=== PATIENT | female | born 1960 | race Caucasian/White ===

== ENCOUNTER 2017-08-07 16:14 | Emergency (ER) | payer OTHER ==
--- NOTE | 2017-08-07 16:48 | ED Physician Documentation ---
PD HPI UPPER EXT INJURY - Stated complaint Stated Complaint: LT WRIST PX - Chief complaint Chief Complaint: Ext Problem - History obtained from History obtained from: Patient - History of Present Illness Location: Other (Trip and fall at a local car wash today. She landed on an outstretched left wrist. She is right-handed. She also has a scrape on her face but no loss of consciousness, headache, or nausea.) Review of Systems Constitutional: denies: Fever, Chills Nose: reports: Reviewed and negative Cardiac: reports: Reviewed and negative PD PAST MEDICAL HISTORY - Past Medical History Past Medical History: No GI: C.difficile : Renal insuffiency Psych: Anxiety - Past Surgical History Past Surgical History: No Cardiovascular: Cardiac catheterization - Present Medications Home Medications: Ambulatory Orders Medication Instructions Recorded Confirmed Acetaminophen with Codeine 1 each PO Q4HR PRN #15 tablet 08/07/17 [Acetaminophen-Cod #3 Tablet] - Allergies Allergies/Adverse Reactions: Allergies Allergy/AdvReac Type Severity Reaction Status Date / Time No Known Drug Allergies Allergy Verified 08/07/17 16:24 - Social History Does the pt smoke?: No Smoking Status: Never smoker PD ED PE NORMAL - Vitals Vital signs reviewed: Yes - General General: Alert and oriented X 3, No acute distress - HEENT HEENT: PERRL, EOMI, Other (There is a little abrasion on the right cheek, no facial bony tenderness.) - Neck Neck: Supple, no meningeal sign, No bony TTP - Derm Derm: Normal color, Warm and dry - Extremities Extremities: Other (TTP L wrist, no deformity. NVI in trisha hand) - Neuro Neuro: Alert and oriented X 3 - Psych Psych: Normal mood, Normal affect Results - Vitals Vitals: Vital Signs - 24 hr 08/07/17 08/07/17 16:21 17:29 Temperature 36.7 C Heart Rate 59 L 60 Respiratory 17 15 Rate Blood Pressure 156/94 H 138/72 H O2 Saturation 99 98 Oxygen O2 Source Room air - Rads (name of study) L wrist 4v Radiology: EMP read contemporaneously (Nondisplaced distal radius fracture) Procedures - Splint (location) L wrist Splint applied by: Tech Type of splint: Fiberglass, Short arm, Volar cock up Other: Patient tolerated well, No complications, Neurovascular intact Departure - Departure Disposition: 01 Home, Self Care Clinical Impression: Fracture of left distal radius Qualifiers: Encounter type: initial encounter Fracture type: closed Fracture morphology: other intra-articular Qualified Code(s): S52.572A - Other intraarticular fracture of lower end of left radius, initial encounter for closed fracture Condition: Good Record reviewed to determine appropriate education?: Yes Instructions: ED Fx Forearm Radius Ulna No Redu Requ Follow-Up: [facility] [Provider Group] - Within 1 week Prescriptions: Acetaminophen with Codeine [Acetaminophen-Cod #3 Tablet] 1 each PO Q4HR PRN #15 tablet PRN Reason: Pain Comments: Keep the splint on and dry, elevated. Follow-up with the orthopedics office in 1 week, call tomorrow for an appointment. Your blood pressure was elevated today on check into the emergency department. This does not mean that you have hypertension, it is a common phenomenon to come to the emergency department and have elevated blood pressure. I recommend that you see your primary care physician within the week to have it rechecked when you are feeling better. Do not drink or drive while taking narcotic pain medication. Note that many narcotic pain relievers also contain Tylenol/acetaminophen. Please ensure that your total dose of acetaminophen from all sources does not exceed 3 g (3000 mg) per day. You may get constipated while on this medication. Take a stool softener such as Colace twice a day while you are on it. Also add an ldam-dja-ydcnmbd laxative such as senna or MiraLAX on any day that you do not have a bowel movement. If you received a narcotic pain medication or sedative while in the emergency department, do not drive for the next 24 hours. Forms: Activity restrictions Discharge Date/Time: 08/07/17 17:29
--- NOTE | 2017-08-07 16:52 | XRAY Preliminary Report ---
Exam: XR WRIST 4 VIEW LT IMPRESSION: Nondisplaced distal radius fracture at base of radial styloid. [facility] SITE ID: [id number]
--- NOTE | 2017-08-07 16:54 | XRAY Report ---
EXAM: LEFT WRIST RADIOGRAPHY EXAM DATE: 08/07/2017 04:39 PM. CLINICAL HISTORY: Fall with wrist injury. COMPARISON: None. TECHNIQUE: 4 views. FINDINGS: Bones: There is a lucency across the base of the radial styloid. No ulnar fracture. The carpal bones appear intact without fracture. Proximal metacarpals appear unremarkable. Joints: Normal. No subluxations. Soft Tissues: There is soft tissue swelling at the dorsal wrist. IMPRESSION: Nondisplaced distal radius fracture at base of radial styloid. [facility] Referring Provider Line: [phone] SITE ID: [id number]
[2017-08-07] MEDS ORDERED: BUFFERED LIDOCAINE 10 ML SYRINGE ONE (17:04)
[2017-08-07 17:29] VITALS: BP 138/72
== END 2017-08-07 17:29 | disposition home or self-care (01) ==
LOC: ED 16:14
DX: S52.572A Other intraarticular fracture of lower end of left radius, initial encounter for closed fracture (principal); W01.0XXA Fall on same level from slipping, tripping and stumbling without subsequent striking against object, initial encounter; Y92.89 Other specified places as the place of occurrence of the external cause; R03.0 Elevated blood-pressure reading, without diagnosis of hypertension; N28.9 Disorder of kidney and ureter, unspecified
CPT/HCPCS: 29125; 99283

== ENCOUNTER 2017-08-16 14:19 | Outpatient (CLI) | payer OTHER ==
--- NOTE | 2017-08-17 14:04 | XRAY Report ---
EXAM: RIGHT RIB RADIOGRAPHY EXAM DATE: 08/16/2017 02:36 PM. CLINICAL HISTORY: CHEST PAIN, ACUTE. COMPARISON: None. TECHNIQUE: 1 view of the chest and 2 views of the ribs. FINDINGS: Bones: No markers were placed at the site of the patient's pain in the lower right chest. No underlyi ng acute rib fracture or other bone lesion is seen in this area. Remainder of the bony structures are unremarkable. Lungs: No focal opacities. No pneumothorax. No pleural effusions. Mediastinum: Heart and mediastinal contours are unremarkable. Other: Suspect the patient has bilateral breast implants. IMPRESSION: No acute process identified in the chest. No evidence of right rib fracture or other acut e bony abnormality. [facility] Referring Provider Line: [phone] SITE ID: [id number]
== END 2017-08-16 14:20 | disposition home or self-care (01) ==
LOC: DI.S 14:19
PROVIDERS: ATTEND Nurse Practitioner Family
DX: R07.89 Other chest pain (principal)

== ENCOUNTER 2017-09-20 12:50 | Outpatient (CLI) | payer OTHER ==
--- NOTE | 2017-09-24 10:44 | DEXA Report ---
DEXA: 09/20/2017 CLINICAL INDICATION: Postmenopausal. TECHNIQUE: Dual energy x-ray absorptiometry (DXA) was performed on a [employer] system. Regions measured are the AP spine, femoral neck, and, if needed, forearm. COMPARISON: None. In accordance with the International Society for Clinical Densitometry (ISCD) guidelines, data from previous exams may be reanalyzed using current recommendations and techniques. This is done to allow a more accurate basis for comparison with the current study. FINDINGS: The data for the lumbar spine is as follows: REGION BMD (g/cm/cm) T-SCORE Z-SCORE L1 0.852 -2.3 -1.6 L2 0.925 -2.3 -1.5 L3 1.048 -1.3 -0.5 L4 1.027 -1.4 -0.7 TOTAL 0.970 -1.8 -1.0 NOTE: All evaluable vertebrae are used for classification. The data for the hip is as follows: REGION BMD (g/cm/cm) T-SCORE Z-SCORE Neck 0.773 -1.9 -0.9 TOTAL 0.850 -1.2 -0.6 NOTE: The femoral neck or total proximal femur, whichever is lowest, is used for classification. IMPRESSION: THE WHO CLASSIFICATION BASED ON THE INTERNATIONAL REFERENCE STANDARD IS OSTEOPENIA. THE FRACTURE RISK IS INCREASED. RECOMMENDATION: Patients with diagnosis of osteoporosis or osteopenia should have regular bone mineral density assessment. For those eligible for Medicare, routine testing is allowed once every 2 years. Testing frequency can be increased for patients who have rapidly progressing disease or for those who are receiving medical therapy to restore bone mass. COMMENT: World Health Organization (WHO) definitions for osteoporosis and osteopenia: NORMAL BMD: T-score at 1.0 or higher, fracture risk is low. OSTEOPENIA BMD: T-score between 1.0 and -2.5, fracture risk is increased. OSTEOPOROSIS BMD: T-score at 2.5 or lower, fracture risk high. National Osteoporosis Foundation recommends: 1. Obtain adequate dietary calcium (at least 1200 mg per day) and vitamin D (400 -800 international units per day). 2. Participate, as appropriate, in regular weightbearing and muscle- strengthening exercise. 3. Avoid tobacco use and reduce alcohol and caffeine intake. 4. For more detailed information see the website at www.NOF.org. TD: 09/20/2017 17:20 MTDMarshall
== END 2017-09-20 12:51 | disposition home or self-care (01) ==
LOC: DI 12:50
PROVIDERS: ATTEND Nurse Practitioner Family
DX: Z13.820 Encounter for screening for osteoporosis (principal); M85.89 Other specified disorders of bone density and structure, multiple sites
CPT/HCPCS: 77080

== ENCOUNTER 2018-01-22 07:31 | Outpatient (CLI) | payer OTHER ==
[2018-01-22 08:08] LABS: BASOPHILS % (AUTO) 0.2 %; EOSINOPHILS # (AUTO) 0.2 10^3/uL (0.0-0.7); EOSINOPHILS % (AUTO) 3.5 %; HGB - HEMOGLOBIN 12.9 g/dL (12.0-16.0); LYMPHOCYTES # (AUTO) 1.7 10^3/uL (1.5-3.5); LYMPHOCYTES % (AUTO) 38.4 %; MEAN CORPUSCULAR HEMOGLOBIN 32.6 pg (27.0-31.0); MEAN CORPUSCULAR HGB CONC 34.1 g/dL (32.0-36.0); MEAN CORPUSCULAR VOLUME 95.8 fL (81.0-99.0); MEAN PLATELET VOLUME 8.9 fL (7.9-10.8); MONOCYTES # (AUTO) 0.6 10^3/uL (0.0-1.0); MONOCYTES % (AUTO) 12.6 %; NEUTROPHILS % (AUTO) 45.3 %; PLT - PLATELET COUNT 256 10^3/uL (130-450); RED BLOOD COUNT 3.97 10^6/uL (4.20-5.40); RED CELL DISTRIBUTION WIDTH 13.1 % (12.0-15.0); WHITE BLOOD COUNT 4.5 x10^3/uL (4.8-10.8)
[2018-01-22 08:23] LABS: ALBUMIN 4.4 g/dL (3.2-5.5); ALBUMIN/GLOBULIN RATIO 1.6 (1.0-2.2); ALKALINE PHOSPHATASE 31 IU/L (42-121); ALT ALANINE AMINOTRANSFERASE 17 IU/L (10-60); AST ASPARTATE AMINOTRANSFERASE 26 IU/L (10-42); BILIRUBIN,TOTAL 0.8 mg/dL (0.2-1.0); BUN - BLOOD UREA NITROGEN 11 mg/dL (6-20); CARBON DIOXIDE - CO2 28 mmol/L (21-32); CHLORIDE 100 mmol/L (101-111); CHOL/HDL RATIO 1.9 (<4.4); CHOLESTEROL 239 mg/dL; CREATININE 0.7 mg/dL (0.4-1.0); GFR - MDRD 86 (>89); GLUCOSE 102 mg/dL (70-100); HDL CHOLESTEROL 127 mg/dL; SODIUM 135 mmol/L (135-145); TOTAL PROTEIN 7.1 g/dL (6.7-8.2)
[2018-01-22 08:49] LABS: LDL CHOLESTEROL,DIRECT 90 mg/dL; LDLD/HDL RATIO 0.7 (<4.4)
== END 2018-01-22 07:32 | disposition home or self-care (01) ==
LOC: LAB 07:31
PROVIDERS: ATTEND Nurse Practitioner Family
DX: M85.80 Other specified disorders of bone density and structure, unspecified site (principal); Z13.6 Encounter for screening for cardiovascular disorders; Z13.29 Encounter for screening for other suspected endocrine disorder; Z13.0 Encounter for screening for diseases of the blood and blood-forming organs and certain disorders involving the immune mechanism
CPT/HCPCS: 36415; 80053; 80061; 83721; 84443; 85025

== ENCOUNTER 2022-08-29 13:56 | Emergency (ER) | payer OTHER ==
--- NOTE | 2022-08-29 14:58 | XRAY Report ---
PROCEDURE: Ankle 3 View RT INDICATIONS: Trauma TECHNIQUE: 3 views of the ankle were acquired. COMPARISON: None FINDINGS: Bones: Small bony fragment at the inferior aspect of the distal fibula. Ankle mortise is normally ali gned. No suspicious bony lesions. Soft tissues: No tibiotalar joint effusion. Achilles tendon appears normal. IMPRESSION: Small bony fragment adjacent to the distal fibula, possibly indicating a small fracture fragment. Clinical correlation recommended. Reviewed by: Alfredito Cao MD on 08/29/2022 2:56 PM PST Approved by: Alfredito Cao MD on 08/29/2022 2:56 PM PST Station ID: [id number]
[2022-08-29 16:21] VITALS: BP 144/90
--- NOTE | 2022-08-29 16:26 | ED Physician Documentation ---
History of Present Illness - Stated complaint Stated Complaint: R ANKLE INJ - Chief complaint Chief Complaint: Trauma Ext - History obtained from History obtained from: Patient (Inversion injury of the right ankle with moderate pain while playing pickle ball at noon today. Not able to walk or bear weight. No other injuries.) PD PAST MEDICAL HISTORY - Past Medical History GI: C.difficile : Renal insuffiency Psych: Anxiety - Past Surgical History Past Surgical History: No Cardiovascular: Cardiac catheterization - Present Medications Home Medications: Ambulatory Orders Medication Instructions Recorded Confirmed Acetaminophen with Codeine 1 each PO Q4HR PRN #15 tablet 08/07/17 [Acetaminophen-Cod #3 Tablet] HYDROcod/ACETAM 5/325 [[place] 5/325] 1 - 2 tab PO Q6H PRN #15 tablet 08/29/22 - Allergies Allergies/Adverse Reactions: Allergies Allergy/AdvReac Type Severity Reaction Status Date / Time No Known Drug Allergies Allergy Verified 08/29/22 14:06 - Social History Does the pt smoke?: No Smoking Status: Never smoker PD ED PE NORMAL - Vitals Vital signs reviewed: Yes - General General: Alert and oriented X 3, No acute distress - HEENT HEENT: PERRL, EOMI - Neck Neck: Supple, no meningeal sign, No bony TTP - Extremities Extremities: Other (Focally tender over the distal lateral malleolus of the right ankle without deformity. No other foot or ankle tenderness. No proximal fibular tenderness) - Neuro Neuro: Alert and oriented X 3, Normal speech Results - Vitals Vitals: Vital Signs - 24 hr 08/29/22 08/29/22 14:04 16:16 Temperature 36.5 C Heart Rate 84 71 Respiratory 14 18 Rate Blood Pressure 162/97 H 144/90 H O2 Saturation 99 99 Oxygen O2 Source Room air - Rads (name of study) Three-view x-ray of the right ankle demonstrates a likely distal fibular chip fracture Radiology: Final report received, EMP read indepedently Departure - Departure Disposition: 01 Home, Self Care Clinical Impression: Fracture of distal end of fibula Qualifiers: Encounter type: initial encounter Fracture type: closed Fracture morphology: other fracture Laterality: right Qualified Code(s): S82.831A - Other fracture of upper and lower end of right fibula, initial encounter for closed fracture Condition: Good Record reviewed to determine appropriate education?: Yes Instructions: ED Fx Ankle Lateral Malleolus Follow-Up: [facility] [Provider Group] Prescriptions: HYDROcod/ACETAM 5/325 [[place] 5/325] 1 - 2 tab PO Q6H PRN #15 tablet PRN Reason: Pain Comments: You should follow-up with the orthopedic office within the week before going to [place]. Until then given the relative minor nature of the fracture I think it is okay to weight-bear as tolerated in the boot. Otherwise keep it elevated and you can take Tylenol and or ibuprofen as needed for pain. I did send a prescription to [facility] in case the pain is too bad for just those. I am prescribing a short course of narcotic pain medication for you. These are potentially dangerous and addictive medications that should be used carefully. These medications may constipate you. Take an ltto-lvy-nmgpnsh stool softener (docusate) twice daily with plenty of water while taking these medications. If you go 24 hours without a bowel movement, take nymo-fea-begfdee miralax, per package instructions. Do not drink or drive while taking these medications. If you received narcotic or sedating medications while in the emergency department, do not drive for 24 hours. Store this medication in a safe, secure place and out of reach of children. It is a violation of federal law to give or sell this medication to another person or to use in a manner other than prescribed. The ED will not refill narcotic prescriptions, including prescriptions lost or stolen. To dispose of unwanted medications: 1. [facility] at [address] [facility] in [place] has a medication drop box. They accept prescription medications (in pill form) Saturday through Saturday 9:00 a.m. to 5:00 p.m. 2. [facility] [employer] [facility] accepts prescription medications (in pill form only) for disposal year round. Call for more information. 3. Contact the [facility] for the next [facility] sponsored prescription drug collection event. , [phone], or [phone]; Note that many narcotic pain relievers also contain Tylenol/acetaminophen. Please ensure that your total dose of acetaminophen from all sources does not exceed 3 g (3000 mg) per day.
== END 2022-08-29 17:13 | disposition home or self-care (01) ==
LOC: ED 13:56
DX: S82.831A Other fracture of upper and lower end of right fibula, initial encounter for closed fracture (principal); X58.XXXA Exposure to other specified factors, initial encounter; Y93.69 Activity, other involving other sports and athletics played as a team or group
CPT/HCPCS: 99283